=== PATIENT | female | born 1990 | race Hispanic/Latino ===

== ENCOUNTER 2023-10-06 19:04 | Emergency (ER) | payer OTHER ==
[~2023-10-06] VITALS: Ht 152.4 cm; Wt 73.0 kg
[~2023-10-06 19:04] MED LIST: LOSARTAN POTASS50 MG PO
[2023-10-06 19:08] VITALS: PULSE 90; RESP 18; TEMP 98.6
[2023-10-06] MEDS: POTASSIUM CHLORIDE 20 MEQ TAB CR PO STA (20:58)
[2023-10-06 21:26] VITALS: BP 114/72; PULSE 78; RESP 18; TEMP 98.6; O2SAT 98
== END 2023-10-06 21:26 | disposition home or self-care (01) ==
LOC: FSED 19:08
DX: R06.00 Dyspnea, unspecified (principal); R07.89 Other chest pain; R60.9 Edema, unspecified; R05.9 Cough, unspecified; E87.6 Hypokalemia; I10 Essential (primary) hypertension
CPT/HCPCS: 71046; 80048; 80076; 80307; 81003; 81025; 85025; 85610; 93005; 99284